=== PATIENT | male | born 2000 | race Caucasian/White ===

== ENCOUNTER 2022-10-06 00:04 | Emergency (ER) | payer MEDICAID ==
[~2022-10-06] VITALS: Ht 170.2 cm; Wt 97.1 kg
--- NOTE | 2022-10-06 00:15 | NUR ---
PT TAKEN TO BED 12
[2022-10-06] MEDS ORDERED: NACL 0.9% 1,000 ML IV ONE (00:20)
[2022-10-06 00:22] VITALS: BP 121/93; PULSE 125; RESP 20; TEMP 98; O2SAT 98
[2022-10-06 00:43] LABS: BASOPHILS % (AUTO) 0.3 % (0.0-2.0); EOSINOPHILS # (AUTO) 0.2 K/uL (0-0.4); EOSINOPHILS % (AUTO) 1.7 % (0.0-4.0); HEMATOCRIT 45.2 % (36-52); HEMOGLOBIN 15.8 g/dL (12.0-18.0); LYMPHOCYTES # (AUTO) 5.7 K/uL (2.0-11.5); LYMPHOCYTES % (AUTO) 49.8 % (20.5-51.1); MEAN CORPUSCULAR HEMOGLOBIN 32 pg (27-31); MEAN CORPUSCULAR HGB CONC 35 g/dL (33-37); MEAN CORPUSCULAR VOLUME 92.6 fL (80-94); MONOCYTES # (AUTO) 0.9 K/uL (0.8-1.0); MONOCYTES % (AUTO) 7.8 % (1.7-9.3); NEUTROPHILS # (AUTO) 4.6 K/uL (1.8-7.7); NEUTROPHILS % (AUTO) 40.4 % (42.2-75.2); PLATELET COUNT (AUTO) 340 K/uL (140-450); RED BLOOD CELL COUNT(AUTO) 4.88 MIL/uL (4.20-6.10); RED CELL DISTRIBUTION WIDTH 12.8 % (11.6-13.7); WHITE BLOOD COUNT (AUTO) 11.4 K/uL (4.8-10.8)
[2022-10-06] MEDS ORDERED: KETOROLAC 30 MG/ML VIAL IVP ONE (01:00)
[2022-10-06 01:05] LABS: ANION GAP 12.8 (8-16); ASPARTATE AMINOTRANSFERASE 31 U/L (15-37); CARBON DIOXIDE 27.2 mmol/L (21-32); CHLORIDE 101 mmol/L (98-107); GFR ARICAN-AMERICAN 120 mL/min (>90); GLUCOSE 193 mg/dL (74-106); SODIUM SERUM 138 mmol/L (136-145); TOTAL BILIRUBIN 0.3 mg/dL (0.0-1.0); UREA NITROGEN, BLOOD 17 mg/dL (7-18)
[2022-10-06] MEDS ORDERED: POTASSIUM CHLORIDE 10 MEQ TABER PO ONE (02:40)
[2022-10-06 02:51] VITALS: BP 108/56; PULSE 84; RESP 17; O2SAT 95
--- NOTE | 2022-10-06 03:20 | NUR ---
Patient discharged with v/s stable. Written and verbal after care instructions given and explained. Patient verbalized understanding. Ambulatory with steady gait. All questions addressed prior to discharge. Advised to follow up with PMD. DR. TRINIDAD ORDERS REINFORCED
== END 2022-10-06 03:20 | disposition home or self-care (01) ==
LOC: MED 00:04
DX: F12.929 Cannabis use, unspecified with intoxication, unspecified (principal); R07.89 Other chest pain
CPT/HCPCS: 36415; 71045; 80053; 84484; 85025; 96361; 96374; 99285; J1885; J7030; Q0092